=== PATIENT | male | born 1960 | race Caucasian/White ===

== ENCOUNTER 2017-02-08 14:26 | Inpatient (IN) | payer OTHER ==
[~2017-02-08] VITALS: Ht 177.8 cm; Wt 98.0 kg
[~2017-02-08 14:26] MED LIST: LEVO112T4 PO
[2017-02-08] MEDS ORDERED: SODIUM CHLORIDE FLUSH 10ML SYR IVF ONE (15:00)
[2017-02-08] MEDS ORDERED: ASPIRIN 81 MG TABLET CHEW PO ONE (15:00)
[2017-02-08 15:13] LABS: BLOOD UREA NITROGEN 17 mg/dL (7-18)
[2017-02-08] MEDS ORDERED: ASPIRIN 81 MG TABLET CHEW ONE (15:21)
[2017-02-08] MEDS ORDERED: NITROGLYCERIN 0.4 MG BOTTLE (25 TABS) SL PRN (17:00)
[2017-02-08] MEDS ORDERED: ONDANSETRON 2MG/ML, 2ML IVPush PRN (17:00)
[2017-02-08] MEDS ORDERED: SODIUM CHLORIDE FLUSH 10ML SYR IVF PRN (17:00)
[2017-02-08] MEDS ORDERED: NITROGLYCERIN 0.4 MG/SPRAY SL PRN (17:00)
[2017-02-08] MEDS ORDERED: morphine SULFATE 10 MG/ML, 1ML IVPush PRN (17:00)
[2017-02-08] MEDS ORDERED: ACETAMINOPHEN 325 MG TABLET PO PRN (17:00)
[2017-02-08 17:42] LABS: IS PT STATUS REG ER OR PRE ER? YES
[2017-02-08 18:13] VITALS: BP 138/89
[2017-02-08 18:14] VITALS: BP 138/89
[2017-02-08 18:51] VITALS: BP 131/89
[2017-02-08] MEDS: ENOXAPARIN 40 MG/0.4 ML SQ SCH (20:21)
[2017-02-08 23:39] LABS: IS PT STATUS REG ER OR PRE ER? NO
[2017-02-09 02:52] VITALS: BP 115/73
[2017-02-09] MEDS: LEVOTHYROXINE 112 MCG TABLET PO SCH (05:33)
[2017-02-09 06:22] LABS: ASPARTATE AMINO TRANSFERASE 28 U/L (15-37); BLOOD UREA NITROGEN 13 mg/dL (7-18)
[2017-02-09 07:35] VITALS: BP 125/82
[2017-02-09] MEDS: ASPIRIN 325 MG TABLET PO SCH (12:11)
[2017-02-09] MEDS ORDERED: SODIUM CHLORIDE 0.9% 1,000ML IVBOLUS ONE (12:30)
[2017-02-09] MEDS: SODIUM CHLORIDE 0.9% 1,000 ML IV SCH (13:00)
[2017-02-09 13:27] VITALS: BP 118/76
[2017-02-09] MEDS ORDERED: OMNIPAQUE 350 MG/ML, 100ML BOTTLE ONE (14:21)
[2017-02-09] MEDS: ENOXAPARIN 40 MG/0.4 ML SQ SCH (17:40)
[2017-02-09 19:19] VITALS: BP 123/82
[2017-02-10] MEDS: SODIUM CHLORIDE 0.9% 1,000 ML IV SCH (00:03)
[2017-02-10 01:37] VITALS: BP 120/74
[2017-02-10] MEDS: LEVOTHYROXINE 112 MCG TABLET PO SCH (06:33)
[2017-02-10 07:03] VITALS: BP 114/76
[2017-02-10 07:03] LABS: BLOOD UREA NITROGEN 14 mg/dL (7-18)
[2017-02-10] MEDS: ASPIRIN 325 MG TABLET PO SCH (10:02)
[2017-02-10] MEDS ORDERED: ASPI-621 PO (11:30)
[2017-02-10 12:58] VITALS: BP 134/80
== END 2017-02-10 14:16 | disposition home or self-care (01) | DRG 206 ==
LOC: ED 14:43 → EDIP 16:43 → SUATTDRO 16:44 → 5SO 18:04
PROVIDERS: ADMIT Internal Medicine; ATTEND Internal Medicine
DX: M94.0 Chondrocostal junction syndrome [Tietze] (principal); R55 Syncope and collapse; Z82.49 Family history of ischemic heart disease and other diseases of the circulatory system; E03.9 Hypothyroidism, unspecified; Z79.82 Long term (current) use of aspirin; Z84.89 Family history of other specified conditions
CPT/HCPCS: 36415; 71010; 71275; 80048; 80053; 80061; 82040; 82962; 83880; 84439; 84443; 84484; 85025; 93005; 93017; 93306; 93880; 99285; J1650; Q9967; J7030

== ENCOUNTER → 2017-03-02 | Outpatient (CLI) | payer OTHER ==
[~2017-03-02] MED LIST changes: +ASPI-621 PO
== END | disposition home or self-care (01) ==
LOC: LAB 11:34
PROVIDERS: ATTEND Family Medicine
DX: E03.8 Other specified hypothyroidism (principal)
CPT/HCPCS: 36415; 84436; 84443; 84480

== ENCOUNTER → 2017-04-28 | Outpatient (CLI) | payer OTHER | END | disposition home or self-care (01) | LOC: LAB 07:44 | PROVIDERS: ATTEND Family Medicine | DX: E03.8 Other specified hypothyroidism (principal) | CPT/HCPCS: 36415; 84436; 84443; 84479 ==

== ENCOUNTER 2018-07-17 17:24 | Emergency (ER) | payer OTHER ==
[~2018-07-17] VITALS: Ht 180.3 cm; Wt 90.0 kg
[2018-07-17 17:38] VITALS: BP 158/98
== END 2018-07-17 18:03 | disposition home or self-care (01) ==
LOC: ED 17:54
DX: S61.232A Puncture wound without foreign body of right middle finger without damage to nail, initial encounter (principal); X58.XXXA Exposure to other specified factors, initial encounter; Y93.89 Activity, other specified; Y92.89 Other specified places as the place of occurrence of the external cause; Y99.8 Other external cause status
CPT/HCPCS: 36415; 86705; 86706; 86803; 87340; 87806; 99284; G0475

== ENCOUNTER 2018-07-21 14:52 | Emergency (ER) | payer OTHER ==
[~2018-07-21] VITALS: Ht 177.8 cm; Wt 94.0 kg
[2018-07-21 15:13] VITALS: BP 128/78
[2018-07-21] MEDS ORDERED: HEPATITIS B IMMUNE GLOBULIN 1 ML IM ONE (15:30)
== END 2018-07-21 16:17 | disposition home or self-care (01) ==
LOC: ED 16:00
DX: Z20.5 Contact with and (suspected) exposure to viral hepatitis (principal)
CPT/HCPCS: 99283

== ENCOUNTER 2018-07-22 15:21 | Emergency (ER) | payer OTHER ==
[~2018-07-22] VITALS: Ht 182.9 cm; Wt 95.0 kg
[2018-07-22] MEDS ORDERED: HEPATITIS B IMMUNE GLOBULIN 1 ML IM ONE (15:30)
[2018-07-22 16:06] VITALS: BP 113/87
== END 2018-07-22 16:32 | disposition home or self-care (01) ==
LOC: ED 16:20
DX: B19.10 Unspecified viral hepatitis B without hepatic coma (principal)
CPT/HCPCS: 90371; 96372; 99283

== ENCOUNTER → 2018-07-25 | Outpatient (CLI) | payer OTHER ==
[2018-07-25 09:32] LABS: FREE T4 (FREE THYROXINE) 0.99 ng/dL (0.76-1.46)
== END | disposition home or self-care (01) ==
LOC: LAB 08:48
PROVIDERS: ATTEND Family Medicine
DX: E03.9 Hypothyroidism, unspecified (principal)
CPT/HCPCS: 36415; 84439; 84443

== ENCOUNTER → 2019-03-12 | Outpatient (CLI) | payer OTHER ==
[~2019-03-12] MED LIST changes: -ASPI-621 PO; +ASPI81TA45 PO
[2019-03-12 07:44] LABS: BASOPHILS # (AUTO) 0.02 x10^3/uL (0-0.1); BASOPHILS % (AUTO) 0 % (0-1); EOSINOPHILS # (AUTO) 0.09 x10^3/uL (0-0.4); EOSINOPHILS % (AUTO) 2 % (1-7); LYMPHOCYTES # (AUTO) 1.23 x10^3/uL (1-3.4); LYMPHOCYTES % (AUTO) 22 % (22-44); MD NO; MEAN CORPUSCULAR HEMOGLOBIN 31.3 pg (27.5-34.5); MEAN CORPUSCULAR VOLUME 94.8 fL (81-97); MEAN PLATELET VOLUME 9.1 fL (7.4-10.4); MONOCYTES # (AUTO) 0.62 x10^3/uL (0.2-0.8); MONOCYTES % (AUTO) 11 % (2-9); NEUTROPHILS # (AUTO) 3.74 x10^3/uL (1.8-6.8); NEUTROPHILS % (AUTO) 66 % (42-75); PLATELET COUNT 176 x10^3/uL (130-400); RED BLOOD COUNT 4.87 x10^6/uL (4.38-5.82); RED CELL DISTRIBUTION WIDTH 13.4 % (9.4-14.8)
[2019-03-12 07:56] LABS: ALANINE AMINOTRANSFERASE 39 U/L (12-78); ALBUMIN 3.9 g/dL (3.4-5.0); ANION GAP 5 mmol/L (5-15); CALCIUM 8.7 mg/dL (8.5-10.1); CHLORIDE 111 mmol/L (98-107)
[2019-03-12 07:59] LABS: ALKALINE PHOSPHATASE 82 U/L (45-117); BILIRUBIN,TOTAL 0.6 mg/dL (0.2-1.0); CHOL/HDL RATIO 2.6; CHOLESTEROL, TOTAL 162 mg/dL (140-239); HDL CHOL % 38 % (26-37); HDL CHOLESTEROL (DIRECT) 62 mg/dL (40-60); LDL CHOLESTEROL,CALCULATED 90 mg/dL (54-169); LDL/HDL RATIO 1.5 (0.5-3.0); TOTAL PROTEIN 7.1 g/dL (6.4-8.2); TRIGLYCERIDES 48 mg/dL (50-200); VLDL CHOLESTEROL 10 mg/dL (0-25)
== END | disposition home or self-care (01) ==
LOC: LAB 07:30
PROVIDERS: ATTEND Nurse Practitioner Family
DX: E78.2 Mixed hyperlipidemia (principal)
CPT/HCPCS: 36415; 80053; 80061; 85025

== ENCOUNTER 2020-05-02 08:22 | Outpatient (CLI) | payer OTHER | END 2020-05-02 23:59 | disposition home or self-care (01) | LOC: CARD 08:22 | PROVIDERS: ATTEND Nurse Practitioner Family | DX: G56.03 Carpal tunnel syndrome, bilateral upper limbs (principal); R53.1 Weakness | CPT/HCPCS: 95885; 95908 ==

== ENCOUNTER → 2021-02-09 | Outpatient (CLI) | payer OTHER ==
[~2021-02-09] MED LIST changes: +ASCO500T8 PO; +CETI-158 PO; +CHOL10003 PO; +CYAN100028 PO; +FIBERWELL PO; +LEVO125T5 PO; +MAGN400T36 PO; +MULT-658 PO
== END | disposition home or self-care (01) ==
LOC: STAR 08:49
PROVIDERS: ATTEND Orthopaedic Surgery
DX: Z20.822 Contact with and (suspected) exposure to COVID-19 (principal); G56.03 Carpal tunnel syndrome, bilateral upper limbs; M65.311 Trigger thumb, right thumb; M65.331 Trigger finger, right middle finger
CPT/HCPCS: U0003; U0005

== ENCOUNTER 2021-02-13 05:31 | Day surgery (SDC) | payer OTHER ==
[~2021-02-13] VITALS: Ht 177.8 cm; Wt 99.1 kg
[2021-02-13] MEDS ORDERED: CHLORHEXIDINE 15 ML UDC PO ONE (06:00)
[2021-02-13] MEDS ORDERED: LACTATED RINGERS 1,000 ML IV SCH (06:00)
[2021-02-13 06:02] VITALS: BP 146/92
[2021-02-13] MEDS ORDERED: CHLORHEXIDINE 15 ML UDC ONE (06:07)
[2021-02-13] MEDS ORDERED: BUPIVACAINE/PF 0.5% ONE (06:19)
[2021-02-13] MEDS ORDERED: EPINEPHRINE 1 MG/ML, 1ML ONE (06:19)
[2021-02-13] MEDS ORDERED: BACITRACIN 50,000 UNIT ONE (06:20)
[2021-02-13] MEDS ORDERED: LIDOCAINE 1%, 20ML ONE (06:20)
[2021-02-13] MEDS ORDERED: FENTANYL PF 100 MCG/2ML ONE (06:40)
[2021-02-13] MEDS ORDERED: MIDAZOLAM 1 MG/ML, 2ML ONE (06:40)
[2021-02-13] MEDS ORDERED: PROMETHAZINE 25 MG/ML, 1ML IVPush PRN (07:00)
[2021-02-13] MEDS ORDERED: HYDROmorphone 1 MG/ML, 1ML INJ IVPush PRN (07:00)
[2021-02-13] MEDS ORDERED: KETOROLAC 30 MG/1 ML IM PRN (07:00)
[2021-02-13] MEDS ORDERED: HYDROcodone/APAP 7.5-325MG/15ML UDC PO PRN (07:00)
[2021-02-13] MEDS ORDERED: FENTANYL PF 100 MCG/2ML IV PRN (07:00)
[2021-02-13] MEDS ORDERED: ACETAMINOPHEN 325 MG TABLET PO PRN (07:00)
[2021-02-13] MEDS ORDERED: OXYcodone 5 MG/5 ML ORAL.SOL UDC PO PRN (07:00)
[2021-02-13] MEDS ORDERED: MEPERIDINE/PF 25MG/0.5ML IVPush PRN (07:00)
[2021-02-13] MEDS ORDERED: ONDANSETRON 2MG/ML, 2ML ONE (07:19)
[2021-02-13] MEDS ORDERED: PROPOFOL 10 MG/ML, 20ML ONE (07:19)
[2021-02-13] MEDS ORDERED: DEXAMETHASONE 4 MG/ML, 1ML ONE (07:19)
[2021-02-13] MEDS ORDERED: CEFAZOLIN 1,000 MG ONE (07:19)
[2021-02-13] MEDS ORDERED: KETOROLAC 30 MG/1 ML ONE (08:47)
[2021-02-13] MEDS ORDERED: KETOROLAC 30 MG/1 ML IVPush PRN (09:00)
== END 2021-02-13 09:45 | disposition home or self-care (01) ==
LOC: OUT 05:31
PROVIDERS: ATTEND Orthopaedic Surgery
DX: G56.03 Carpal tunnel syndrome, bilateral upper limbs (principal); M65.311 Trigger thumb, right thumb; M65.331 Trigger finger, right middle finger; E03.9 Hypothyroidism, unspecified; G40.909 Epilepsy, unspecified, not intractable, without status epilepticus; Z79.899 Other long term (current) drug therapy; Z82.49 Family history of ischemic heart disease and other diseases of the circulatory system; Z72.89 Other problems related to lifestyle
CPT/HCPCS: 26055; 29848; J0171; J0690; J1100; J1885; J2250; J2405; J2704; J3010; J7120